=== PATIENT | male | born 1980 | race Caucasian/White ===

== ENCOUNTER 2017-01-11 23:02 | Emergency (ER) | payer BC, OTHER ==
[2017-01-11] MEDS ORDERED: ONDANSETRON HCL/PF 2 MG/ML VIAL IV ONE (23:20)
[2017-01-11] MEDS ORDERED: NORMAL SALINE 1,000 ML IV ONE (23:21)
[2017-01-11] MEDS ORDERED: PROMETHAZINE HCL 25 MG/ML AMPUL IM ONE (23:23)
[2017-01-11] MEDS ORDERED: PROMETHAZINE HCL 25 MG/ML AMPUL ONE (23:24)
[2017-01-11] MEDS ORDERED: ONDANSETRON HCL/PF 2 MG/ML VIAL ONE (23:26)
--- NOTE | 2017-01-11 23:28 | ERNOTE ---
Abdominal HPI - General Chief Complaint: Abdominal Pain Time Seen by Provider: 01/11/17 23:16 Source: patient, family Exam Limitations: clinical condition - Immun/Allergies/Home Medications Immunizatons: IMMUNIZATION HX Immunizations Up to Date Yes History of Influenza Vaccine No Hx Pneumococcal Vaccination No Allergies/Adverse Reactions: Allergies morphine Allergy (Unknown, Verified 01/11/17 23:34) Other Home Medications: HOME MEDICATIONS Ranitidine HCl [Zantac] 150 mg PO DAILY 01/11/17 [Last Taken Unknown] Ondansetron [Zofran Odt] 4 - 8 mg PO Q8H PRN #20 tab 01/12/17 [Last Taken Unknown] Promethazine HCl [Phenergan] 25 mg PO QID PRN #5 tab 01/12/17 [Last Taken Unknown] - History of Present Illness Narrative: Pt had onset of abdominal pain around 19:30 tonight. It has continued without change, accompanied by vomiting x 5 . Pt had multiple wasp stings earlier today. Timing: constant, getting worse Quality: severe, stabbing Activities at Onset: activity Associated Symptoms: Present: diaphoresis. Absent: shortness of breath Review of Systems - Review of Systems Constitutional: Absent: recent illness EYE: Absent: vision changes ENT: Absent: nose congestion, throat swelling Respiratory: Absent: shortness of breath Cardiology: Absent: chest pain Gastrointestinal/Abdominal: Present: See HPI Musculoskeletal: Absent: back pain Skin: Present: other - insect stings on back of neck. Absent: rash Neurological: Present: anxiety Endocrine: Present: no symptoms reported Hematologic/Lymphatic: Present: no symptoms reported Psych: Present: no symptoms reported - Patient's Past Medical History Patient History - Medical: GERD Patient History - Cardiac/Respiratory: No pertinent hx Patient History - Cancer: No Hx of Cancer Patient History - Surgical Procedures: No surgical history Patient History - Other: None - Social History Living Situations: home Abuse History: No History of abuse Psych History: No pertinent hx Smoking Status: Never smoker Have you smoked in the past 12 months: No Do you dip or chew tobacco: No Alcohol Use: rarely Drug Use: none - Immunizations Immunizations Up to Date: Yes Hx Pneumococcal Vaccination: No History of Influenza Vaccine: No Physical Exam - Physical Exam General Appearance: Present: wd/wn, alert, moderate distress Head Exam: Present: normal inspection, no evidence of injury Eye Exam: Normal inspection: bilateral, PERRL: bilateral Ears, Nose, Throat: Present: normal ENT inspection, normal pharynx Neck: Present: normal inspection, nontender, supple, full range of motion Respiratory: Present: no respiratory distress, normal breath sounds, lungs clear Cardiovascular/Chest: Present: regular rate, rhythm, no murmur Gastrointestinal/Abdominal: Present: tenderness - diffuse, moderate Back Exam: Present: normal inspection, normal range of motion Extremity Exam: Present: normal inspection, normal range of motion, no edema Neurological Exam: Present: alert, oriented Skin Exam: Present: normal color, warm/dry Lymphatic Exam: Present: no adenopathy ED Progress - Results and Orders Patient's Lab Results:: I have reviewed the patient's lab results. Results and Orders: Laboratory Tests 01/11/17 01/11/17 23:25 23:25 WBC 11.2 H Hgb 15.6 Hct 45.2 Plt Count 211 Sodium 140 Potassium 3.6 Chloride 104 Carbon Dioxide 25.0 Anion Gap 14.6 H BUN 17 Creatinine 1.18 Est GFR (Non-Af Amer) 75 BUN/Creatinine Ratio 14.4 Random Glucose 127 H Calcium 9.0 Total Bilirubin 0.4 AST 23 ALT 29 Alkaline Phosphatase 66 Total Protein 7.5 Albumin 4.3 Amylase 44 Lipase 188 - Vital Signs Patient's Vital Signs:: I have reviewed the patient's vital signs. Vital Signs: Vital Signs 01/11/17 23:03 Temperature 36.4 C L Respiratory 18 Rate Blood Pressure 134/77 O2 Sat by Pulse 98 Oximetry - X-Ray X-Ray #1 X-Ray: abdomen Interpretation: Interp. by me X-ray Comments: mild to mod fecal retention, no obstruction or free air - CT/Ultrasound CT/Ultrasound Narrative: CT abd/ pelvis with oral and IV contrast Small hiatal hernia gallbladder is partially contracted. no pericholecystic fluid or cholelithiasis Appendix appears normal no fluid or pneumoperitioneum - Progress/Reassessment Chief Complaint: Abdominal Pain Progress:: Improved - Pt feeling much better. Departure - Departure Clinical Impression: Vomiting Qualifiers: Vomiting type: bilious vomiting Nausea presence: with nausea Qualified Code(s) : R11.14 - Bilious vomiting Disposition: Home self-care Condition: Good Instructions: Nausea, Adult Additional Instructions: Take zofran every 8 hours for 24 hours then as needed. you may take your next dose at 9 am. Take phenergan as needed if zofran isn't working Prescriptions: Ondansetron [Zofran Odt] 4 - 8 mg PO Q8H PRN #20 tab PRN Reason: Nausea Promethazine HCl [Phenergan] 25 mg PO QID PRN #5 tab PRN Reason: nausea/vomiting
[2017-01-11 23:35] LABS: Hematocrit 45.2 % (42.0-52.0); Hemoglobin 15.6 gm/dL (13.5-18.0); Mean Cell Volume 81.6 fl (78-100); Mean Corpuscular Hemoglobin 28.2 pg (27-31); Mean Corpuscular Hgb Conc 34.5 g/dl (32-36); Mean Platelet Volume 9.8 fl (6.0-9.5); Neutrophil # 8.3 K/mm3 (1.3-6.0); Neutrophil % 74.3 % (42-75.0); Platelet Count 211 K/mm3 (150-450); Red Blood Count 5.54 M/mm3 (4.7-6.0); Red Cell Distribution Width 12.1 % (11.5-14.0); White Blood Count 11.2 K/mm3 (4.0-10.5)
[2017-01-11 23:49] LABS: Albumin * 4.3 gm/dl (3.4-5.0); Anion Gap 14.6 mmol/L (6.8-13.8); BUN/Creatinine Ratio 14.4 (9.0-21.6); Bilirubin, Total 0.4 mg/dL (0.0-1.1); Ca. Corrected For Albumin 8.4 mg/dL (8.4-10.2); Potassium 3.6 mmol/L (3.4-4.6); Total Protein 7.5 gm/dL (6.2-8.2)
[2017-01-11] MEDS ORDERED: diphenhydrAMINE HCL 50 MG/ML VIAL ONE (23:59)
[2017-01-11] MEDS ORDERED: FAMOTIDINE 10 MG/ML VIAL IV ONE (23:59)
[2017-01-12] MEDS ORDERED: diphenhydrAMINE HCL 50 MG/ML VIAL IV ONE (00:04)
[2017-01-12] MEDS ORDERED: FAMOTIDINE 10 MG/ML VIAL IV ONE ×2 (00:04→00:06)
[2017-01-12] MEDS ORDERED: diphenhydrAMINE HCL 50 MG/ML VIAL ONE (00:05)
[2017-01-12] MEDS ORDERED: ONDANSETRON HCL/PF 2 MG/ML VIAL ONE (00:39)
[2017-01-12] MEDS ORDERED: KETOROLAC TROMETHAMINE 30 MG/ML VIAL IV ONE (02:29)
[2017-01-12] MEDS ORDERED: KETOROLAC TROMETHAMINE 30 MG/ML VIAL ONE (02:39)
[2017-01-12] MEDS ORDERED: DIATRIZOATE MEGLUMINE, SODIUM 30 ML BTL ONE (02:41)
[2017-01-12] MEDS ORDERED: DIATRIZOATE MEGLUMINE, SODIUM 30 ML BTL PO ONE (02:51)
[2017-01-12 03:04] LABS: Urine Bilirubin Negative (NEGATIVE); Urine Blood Negative /ul (NEGATIVE); Urine Ketone 15 mg/dL (NEGATIVE); Urine Nitrite Negative (NEGATIVE); Urine Protein Negative (NEGATIVE); Urine Specific Gravity >=1.030 SP.GR. (1.005-1.030); Urine Urobilinogen Normal (NORMAL); Urine pH 5.5 pH (5.0-7.0)
[2017-01-12 03:20] LABS: Urine Amorphous Sediment TRACE (NONE-FEW); Urine Appearance Clear; Urine Bacteria TRACE; Urine Color Yellow; Urine Hyaline Cast 0-5 /LPF; Urine Mucus TRACE; Urine RBC None Seen /hpf (0-5); Urine WBC 0-5 /hpf (0-5)
[2017-01-12 05:36] VITALS: BP 104/63
== END 2017-01-12 05:34 | disposition home or self-care (01) ==
LOC: ER 23:02
DX: R11.14 Bilious vomiting (principal); K59.00 Constipation, unspecified; K44.9 Diaphragmatic hernia without obstruction or gangrene
CPT/HCPCS: 36415; 74020; 74177; 80053; 81001; 82150; 83690; 85025; 96372; 96374; 96375; 99284; J2405